=== PATIENT | female | born 2000 | race Asian ===

== ENCOUNTER 2025-06-13 20:31 | Emergency (ER) | payer BC, SELFPAY ==
[2025-06-13 20:37] VITALS: BP 131/83
--- NOTE | 2025-06-13 22:54 | ED.GENMED ---
History of Present Illness
General
Chief Complaint: Foreign Body Ingestion
Source: patient
Exam Limitations: none
Time Seen by Provider: 06/13/25 22:16
Nursing documentation reviewed up to this point in time: agreed with
History of Present Illness
History of Present Illness:
The patient is a 24-year-old female who presents with a sensation of a foreign body in her throat. She was eating fish for dinner and believes she has a fishbone stuck in the back of her throat. She denies episode of choking or coughing. She
describes the sensation as being more pronounced when she swallows, noting it feels like its 'down here' (pointing to midline neck just superior to her thyroid cartilage). She denies difficulty swallowing and has been able to swallow water but
notes persistent pinpoint pain with swallowing that has persisted throughout the evening. Again, she has had no cough nor shortness of breath nor gagging or choking. She did vomit once shortly after symptoms began and the patient reports having a
sensitive gag reflex, which she attributes to this particular sensation. No recurrent episodes of vomiting nor gagging.
Her daily medications include control pills and recently began Zoloft.
Denies risk of , last menstrual period May 26.
Past History
Past History
ED Past Medical History: None
ED Past Surgical History: Other (Eye surgery)
Social History
Tobacco: Non-smoker
Alcohol: None
Drug: None
Personal: Single
Living: with family
Family History
Family History: Other (Noncontributory)
Phy Exam
Physical Exam
Physical Exam:
GENERAL: Alert , in no apparent distress. 24-year-old female appears her stated age, bright and alert, pleasant, appears in no acute distress. Easily communicative. Speech is clear. No respiratory distress. Handling secretions well. Her mother
is accompanying.
EYE: anicteric
NECK: Supple, nontender, no meningismus, no significant adenopathy.
ENT: posterior pharynx is clear, oral mucosa is moist. No abrasions, no foreign body visualized during limited posterior pharyngeal exam�patient has marked difficulty during tongue blade/posterior pharyngeal exam.
CARDIAC: Regular rate and rhythm. no murmur.
LUNGS: Clear breath sounds bilaterally, no acute respiratory distress, no wheezes/rales/rhonchi
ABDOMEN: Soft, nondistended, without focal tenderness
NEUROLOGICAL: Alert and oriented x3, no focal neuro deficits. Gait is gómez and steady.
SKIN: Warm and dry, normal color, skin intact. No rash.
MUSCULOSKELETAL: No C/C/E. peripheral pulses are full and equal b/l. No palpable tenderness.
PSYCH: Normal and appropriate interaction.
Course
Orders/Labs/Results
Orders:
Orders
06/13/25 22:24
CR Soft Tissue Neck Urgent
Comment:
Reason For Exam: possible lodged fish bone (AP and lateral please)
06/13/25 22:49
CT Neck W/o Iv Contrast Urgent
Comment:
Reason For Exam: concern for fb (fish bone) upper esophagus
Vital Signs
Initial and Last Documented VS:
Initial Vital Signs
Temp Pulse Resp Pulse Ox
97.6 F 58 19 100
06/13/25 20:35 06/13/25 20:35 06/13/25 20:35 06/13/25 20:35
Last Documented Vital Signs
Temp Pulse Resp BP Pulse Ox
97.6 F 59 14 123/84 100
06/13/25 20:35 06/14/25 00:02 06/14/25 00:02 06/14/25 00:02 06/14/25 00:02
MDM/Problems Addressed
Differential Diagnosis Includes:
The Differential Diagnosis includes, in no particular order and is not limited to:
1. pharyngeal Foreign body (fish bone)
2. Gastroesophageal reflux disease (GERD)
3. Pharyngitis
4. Esophageal stricture
5. Thyroid disorder
6. Cervical spine abnormalities
7. Oral or esophageal infection
8. Allergic reaction
9. Psychological factors/stress
10. Lingual tonsil hypertrophy
MDM/Problems Addressed:
Inferior pharyngeal foreign body sensation that began after consuming fish with bones.
Exam is benign. No respiratory distress nor difficulty swallowing.
Will check soft tissue neck x-ray.
*Radiology
Radiology exam reviewed: preliminary read by ED provider (I have concern for potential linear/horizontal foreign body within the superior aspect of the esophagus. As such we will check CT of the neck.)
*Pulse Oximetry
SaO2: 100
Oxygen Mode of Delivery: Room air
Patient hypoxic: no
*Critical Care Note
Total Time (30-74mins, 75-104mins- exclusive of procedures): Not Applicable
Update Note
Update Note:
Soft tissues of the neck, there is concern for potential linear retained foreign body in the superior aspect of the esophagus versus thyroid cartilage calcification. However, as this potential foreign body appears to be the exact location of
patient's discomfort, will check CT of the neck.
23:55
CT of the neck shows no retained foreign body. No acute findings.
I suspect patient may have suffered a mild focal scratch related to fishbone and as such, esophageal mucosa should heal uneventfully over the next several days.
Recommend she maintain a soft diet over the next several days, avoid spicy foods.
Discussed importance of staying well-hydrated.
May take Tylenol versus ibuprofen as needed for discomfort.
Follow-up with PCP as needed.
ED Attending Note
-
Portions of this chart may have been created with voice recognition software.� Occasional wrong word or��sound alike� substitutions may have occurred due to the inherent limitations of voice recognition software.
Discharge Plan
Departure
Patient Disposition: Home (Routine Discharge)
Date of Disposition: 06/13/25
Time of Disposition: 23:53
Patient with high blood pressure during this ER visit?: No
Discharge Problem:
Foreign body sensation in throat
Instructions: Soft diet, Sore Throat - Adult
Referrals:
Laurence Medrano MD [Family Provider, Internal Medicine] - As needed
Interventions
Interventions:
*Risk Screen - Suicide Last Done: 06/13/25 20:36
*General Assessment Last Done: 06/13/25 20:36
*Neglect/Abuse Screening Last Done: 06/13/25 21:47
*ED- Fall Risk Assessment Last Done: 06/13/25 23:15
*ED COVID-19 Vaccine History Last Done: 06/13/25 20:36
*ED Influenza Vaccine History Last Done: 06/13/25 20:36
*Nursing Disposition Last Done: 06/14/25 00:02
[facility]-Efcly[facility]-Fiqdutjs[facility] Assessment Last Done: 06/13/25 21:47
ED- Pulmonary Assessment Last Done: 06/13/25 21:47
ED-EENT Assessment Last Done: 06/13/25 21:47
Discharge Date and Time
Discharge Date/Time: 06/14/25 00:04
Print Language: [id number]
[2025-06-14 00:02] VITALS: BP 123/84
== END 2025-06-14 00:04 | disposition home or self-care (01) ==
LOC: EMR 20:31
PROVIDERS: EMERGENCY PHYSICIAN Emergency Medicine; FAMILY PHYSICIAN Internal Medicine
DX: R09.A2 Foreign body sensation, throat (principal); Z79.3 Long term (current) use of hormonal contraceptives
CPT/HCPCS: 99284; 70360; 70490